=== PATIENT | male | born 2005 | race African-American/Black ===

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

== ENCOUNTER → 2025-07-06 | Emergency (ER) | payer OTHER ==
[2025-07-06 22:29] LABS: #Basophils Less than 0.03 10x3/uL (0.0-0.2); #Eosinophils 0.04 10x3/uL (0.0-0.7); #Monocytes 0.43 10x3/uL (0.11-0.59); #Neutrophils 4.19 10x3/uL (1.40-6.50); %Basophils 0.3 % (0.0-1.0); %Eosinophils 0.6 % (0.0-10.0); %Lymphocytes 26.4 % (28.0-48.0); %Monocytes 6.7 % (0.0-4.0); %Neutrophils 65.5 % (31.0-61.0); Hematocrit 48.7 % (42.0-52.0); Hemoglobin 15.8 g/dL (14.0-18.0); Mean Corpuscular Hemoglobin 26.6 pg (25.0-35.0); Mean Corpuscular Volume 82.1 fL (78.0-98.0); Platelet Count 180 10x3/uL (130-400); Red Blood Cell (RBC) Count 5.93 mill/uL (4.00-5.20); White Blood Cell (WBC) Count 6.40 10x3/uL (4.8-10.8)
[2025-07-06 22:45] LABS: Acetaminophen Less than 10 mcg/mL (Less than 10); Salicylate Less than 8.0 mg/dL (Less than 8.0)
[2025-07-06 22:46] LABS: ALT (SGPT) 29 U/L (Less than 45); AST (SGOT) 37 U/L (11-34); Albumin 4.3 g/dL (3.1-4.5); Alkaline Phosphatase 109 U/L (50-130); Anion Gap 15 mmol/L (10-20); BUN (Urea Nitrogen) 13 mg/dL (8.9-20.6); Bilirubin, Total 0.7 mg/dL (0.3-1.2); Calc. Creatinine Clearance 0 mL/min (70-130); Calcium 9.1 mg/dL (7.8-10.44); Carbon Dioxide 22 mmol/L (22-29); Chloride 104 mmol/L (98-107); Globulin 3.1 g/dL (2.4-3.5); Glucose 100 mg/dL (70-105); Potassium 4.1 mmol/L (3.5-5.1); Sodium 137 mmol/L (136-145)
[2025-07-06 23:32] LABS: Cocaine Metabolite Screen Negative (Negative); THC/Cannabinoid Screen Negative (Negative); Tricyclic Screen PRELIM POSITIVE (Negative)
== END ==
LOC: ERS 22:11 → EEVIPCON 22:11
DX: T43.592A Poisoning by other antipsychotics and neuroleptics, intentional self-harm, initial encounter (principal); T14.91XA Suicide attempt, initial encounter
CPT/HCPCS: 80053; 80306; 80307; 84443; 85025; 93005